=== PATIENT | female | born 1970 | race Caucasian/White ===

== ENCOUNTER 2022-03-07 19:34 | Emergency (ER) | payer OTHER ==
[~2022-03-07] VITALS: Ht 170.2 cm; Wt 95.3 kg
[~2022-03-07 19:34] MED LIST: KETO10TA2 PO; ORPH100T PO
[2022-03-07] MEDS ORDERED: ATENOLOL25 MG PO (19:50)
[2022-03-07] MEDS ORDERED: ATORVASTATIN CA10 MG PO (19:51)
== END 2022-03-07 23:23 | disposition home or self-care (01) ==
LOC: ER 19:34
DX: A49.3 Mycoplasma infection, unspecified site (principal)